=== PATIENT | female | born 1945 | race Caucasian/White ===

== ENCOUNTER → 2017-01-09 | Outpatient (CLI) | payer MEDICARE, OTHER ==
--- NOTE | 2017-01-09 15:34 | KCIC ---
PROCEDURE MR the right shoulder HISTORY Right shoulder impingement syndrome and pain for 4 months. TECHNIQUE Standard noncontrast images are obtained. COMPARISON None FINDINGS Acromioclavicular joint is degenerative with small undersurface osteophytes Full-thickness tear of the anterior supraspinatus tendon measures 10 mm AP diameter. Undersurface retraction measures 15 mm. Deep undersurface partial tearing extends through the infra spinatus tendon. Partial subscapularis tendon tear. Trace fluid in the subdeltoid bursa. Mild fatty infiltration and volume loss of the rotator cuff muscles. There is some irregularity and distortion of the superior labrum compatible with a degenerative tear. Only trace glenohumeral joint fluid. Articular cartilage is intact. Biceps tendon not visualized. No bone lesion or acute fracture. No acute soft tissue abnormality. Small axillary lymph nodes are seen without evidence of bulky or pathologic enlargement. IMPRESSION 1. Rotator cuff tear. Small full-thickness tear of the anterior supraspinatus tendon, with deep undersurface tearing through the infraspinatus. Partial subscapularis tendon tear. 2. Degenerative superior labrum tear. 3. Nonvisualized biceps tendon, suspect rupture. Electronically signed by: Ismael Cortes MD (Jan 09, 2017 15:33:02)
== END | disposition home or self-care (01) ==
LOC: KCIC MRI 13:44
PROVIDERS: ATTEND Orthopaedic Surgery
DX: M25.711 Osteophyte, right shoulder (principal); S46.011A Strain of muscle(s) and tendon(s) of the rotator cuff of right shoulder, initial encounter; X58.XXXA Exposure to other specified factors, initial encounter; Y93.89 Activity, other specified; Y92.89 Other specified places as the place of occurrence of the external cause; Y99.8 Other external cause status
CPT/HCPCS: 73221